=== PATIENT | female | born 1955 | race Caucasian/White ===

== ENCOUNTER 2021-11-28 17:43 | Inpatient (IN) | payer OTHER ==
[~2021-11-28] VITALS: Ht 152.4 cm; Wt 59.5 kg
[~2021-11-28 17:43] MED LIST: ALBUTEROL2.5 MG/3 M INH; ANTIVERT 25MG T25 MG PO; ASMANEX220 MC1 INH; AZITHROMYCIN250 MG PO; BORIC ACID; COMBIVENT0.074 GM/I INH; COMPAZINE10 MG PO; CYMBALTA60 MG PO; FIORICET TAB1 EA PO; FLONASE 0.05% N16 GM; IBUPROFEN600 MG PO; IBUPROFEN800 MG PO; IMITREX100 MG PO; IPRAT-ALBUT 0.5-3 ML INH; IPRATROPIUM INH; LINZESS145 MCG PO; LIORESAL TAB 1010 MG PO; LIPITOR TAB 2020 MG PO; LYRICA150 MG PO; LYRICA75 MG PO; MAGNESIUM OXID400 MG PO; METRONIDAZOLE60 GM TP; MOBIC15 MG PO; MONTELUKAST SOD10 MG PO; NABUMETONE750 MG PO; NEXIUM40 MG PO; NORCO 10-325 T1 EACH PO; PANTOPRAZOLE SO40 MG PO; PREDNISONE10 MG PO; PREPARATION H26 GM TP; PROCTOFOAM-HC 110 GM PR; ROBITUSSIN AC480 ML PO; SINGULAIR10 MG PO; SPIRIVA18 MCG INH; SUDAFED 30 MG T30 MG PO; SUMATRIPTAN SU100 MG PO; SUPRAX400 MG PO; SYMBICORT 160-1 INHA INH; SYMBICORT 16010.2 GM INH; TESSALON PERLE100 MG PO; TIZANIDINE HCL4 MG PO; VALIUM5 MG PO; VENTOLIN HFA 66.7 GM INH; VIBRAMYCIN100 MG PO; VIT D PO; VITAMIN D250000 UNIT PO; VOLTAREN100 GM TP; ZIPSOR25 MG PO; ZITHROMAX TRI-500 MG PO; ZOFRAN4 MG PO; ZYRTEC10 MG PO; [UNRECOGNIZED DRUG - OTHER] INJ; [UNRECOGNIZED DRUG - OTHER] INJ; [UNRECOGNIZED DRUG - OTHER] PO
[2021-11-28 18:51] LABS: HEMOGLOBIN 12.1 gm/dl (12.3-15.3); RED BLOOD COUNT 4.27 M/UL (4.00-5.10); WHITE BLOOD COUNT 18.3 K/UL (4.5-11.0)
[2021-11-29] MEDS ORDERED: AZELASTINE137 MCG/0. (01:41)
[2021-11-29] MEDS ORDERED: DEXILANT60 MG PO (01:42)
[2021-11-29] MEDS ORDERED: XANAX0.5 MG PO (01:43)
[2021-11-29] MEDS ORDERED: PROTONIX40 MG PO (01:44)
[2021-11-29] MEDS ORDERED: LEVOCETIRIZINE D5 MG PO (01:45)
[2021-11-29] MEDS ORDERED: FLONASE 0.05% N16 GM (01:45)
[2021-11-29] MEDS ORDERED: LINZESS72 MCG PO (01:46)
[2021-11-29] MEDS ORDERED: BACLOFEN10 MG PO (01:47)
[2021-11-29] MEDS ORDERED: SPIRIVA RESPIMAT4 GM INH (01:48)
[2021-11-29] MEDS ORDERED: ATORVASTATIN CA40 MG PO (01:50)
[2021-11-29] MEDS ORDERED: VITAMIN C1000 MG PO (01:51)
[2021-11-29] MEDS ORDERED: CYCLOBENZAPRINE10 MG PO (01:51)
[2021-11-29] MEDS ORDERED: CALCIUM500 MG PO (01:52)
[2021-11-30 06:11] LABS: HEMOGLOBIN 10.9 gm/dl (12.3-15.3)
[2021-11-30 06:18] LABS: RED BLOOD COUNT 3.84 M/UL (4.00-5.10)
[2021-11-30 07:03] LABS: BUN/CREATININE RATIO 20 (0-10)
[2021-12-02 03:25] LABS: HEMOGLOBIN 10.8 gm/dl (12.3-15.3); RED BLOOD COUNT 3.91 M/UL (4.00-5.10); WHITE BLOOD COUNT 19.4 K/UL (4.5-11.0)
[2021-12-02 04:10] LABS: BUN/CREATININE RATIO 21 (0-10)
[2021-12-03 03:28] LABS: HEMOGLOBIN 10.4 gm/dl (12.3-15.3); RED BLOOD COUNT 3.77 M/UL (4.00-5.10); WHITE BLOOD COUNT 15.9 K/UL (4.5-11.0)
[2021-12-03 03:53] LABS: BUN/CREATININE RATIO 18 (0-10)
[2021-12-04 03:01] LABS: HEMOGLOBIN 10.9 gm/dl (12.3-15.3); RED BLOOD COUNT 3.95 M/UL (4.00-5.10); WHITE BLOOD COUNT 13.6 K/UL (4.5-11.0)
[2021-12-04 03:17] LABS: BUN/CREATININE RATIO 22 (0-10)
[2021-12-04] MEDS ORDERED: PLAVIX 75 MG TA75 MG PO (11:01)
[2021-12-04] MEDS ORDERED: OMNICEF 300 MG300 MG PO (11:01)
[2021-12-04] MEDS ORDERED: BENZONATATE100 MG PO (11:01)
[2021-12-04] MEDS ORDERED: ELIQUIS5 MG PO (11:01)
[2021-12-04] MEDS ORDERED: LOPRESSOR 25 MG25 MG PO (11:01)
[2021-12-04] MEDS ORDERED: DECADRON6 MG PO (11:01)
--- NOTE | 2021-12-04 11:10 | NUR ---
PATIENT O2 SATS DROP TO 80% ON ROOM AIR.
--- NOTE | 2021-12-04 12:35 | NUR ---
PATIENT GIVEN DISCOUNT CARD FOR ELIQUIS. EXPLAINED IN DETAIL USE OF THE DISCOUNT CARD, PATIENT VERBALIZED UNDERSTANDING.
== END 2021-12-04 14:37 | disposition home or self-care (01) | DRG 177 ==
LOC: ER1 17:43 → PROG CARE 21:02 → CDU 21:02 → PROG CARE 11-29 00:46
PROVIDERS: Internal Medicine; Preventive Medicine Occupational Medicine; ADMIT Internal Medicine
PROC: 8E0ZXY6 Isolation (ICD-10-PCS; principal; 2021-11-28)
PROC: XW033E5 Introduction of Remdesivir Anti-infective into Peripheral Vein, Percutaneous Approach, New Technology Group 5 (ICD-10-PCS; 2021-11-28)
PROC: 3E0333Z Introduction of Anti-inflammatory into Peripheral Vein, Percutaneous Approach (ICD-10-PCS; 2021-11-28)
PROC: B24BZZZ Ultrasonography of Heart with Aorta (ICD-10-PCS; 2021-11-29)
PROC: 5A0945A Assistance with Respiratory Ventilation, 24-96 Consecutive Hours, High Flow/Velocity Cannula (ICD-10-PCS; 2021-12-01)
DX: U07.1 COVID-19 (principal); J96.01 Acute respiratory failure with hypoxia; J12.82 Pneumonia due to coronavirus disease 2019; J18.9 Pneumonia, unspecified organism; I21.4 Non-ST elevation (NSTEMI) myocardial infarction; J45.901 Unspecified asthma with (acute) exacerbation; I23.6 Thrombosis of atrium, auricular appendage, and ventricle as current complications following acute myocardial infarction; E87.2 Acidosis; R73.9 Hyperglycemia, unspecified; E78.5 Hyperlipidemia, unspecified; G89.29 Other chronic pain; M54.2 Cervicalgia; F32.A Depression, unspecified; T38.0X5A Adverse effect of glucocorticoids and synthetic analogues, initial encounter; F41.9 Anxiety disorder, unspecified; G43.909 Migraine, unspecified, not intractable, without status migrainosus; Z83.3 Family history of diabetes mellitus; Z82.49 Family history of ischemic heart disease and other diseases of the circulatory system; Z98.890 Other specified postprocedural states; Z83.438 Family history of other disorder of lipoprotein metabolism and other lipidemia; Z88.8 Allergy status to other drugs, medicaments and biological substances
CPT/HCPCS: 36415; 36600; 71045; 80048; 80053; 80076; 81001; 82550; 82553; 82803; 82962; 83605; 83690; 83874; 83880; 84484; 85025; 85027; 85379; 85652; 86140; 87086; 93005; 94640; 94664; 94760; 99285; J0248; J0696; J1100; J1650; J1885; J2270; J2405; J7030; Q9967; U0002

== ENCOUNTER → 2021-12-27 | Outpatient (CLI) | payer OTHER ==
[~2021-12-27] MED LIST changes: +ATORVASTATIN CA40 MG PO; +AZELASTINE137 MCG/0.; +BACLOFEN10 MG PO; +BENZONATATE100 MG PO; +CALCIUM500 MG PO; +CYCLOBENZAPRINE10 MG PO; +DECADRON6 MG PO; +DEXILANT60 MG PO; +ELIQUIS5 MG PO; +LEVOCETIRIZINE D5 MG PO; +LINZESS72 MCG PO; +LOPRESSOR 25 MG25 MG PO; +OMNICEF 300 MG300 MG PO; +PLAVIX 75 MG TA75 MG PO; +PROTONIX40 MG PO; +SPIRIVA RESPIMAT4 GM INH; +VITAMIN C1000 MG PO; +XANAX0.5 MG PO
[2021-12-27 07:15] LABS: HEMOGLOBIN 11.4 gm/dl (12.3-15.3); RED BLOOD COUNT 4.16 M/UL (4.00-5.10); WHITE BLOOD COUNT 4.2 K/UL (4.5-11.0)
[2021-12-27 07:39] LABS: BUN/CREATININE RATIO 27 (0-10)
== END ==
LOC: CATH 06:17
PROVIDERS: Internal Medicine Cardiovascular Disease
DX: I25.119 Atherosclerotic heart disease of native coronary artery with unspecified angina pectoris (principal); I77.1 Stricture of artery; I34.8 Other nonrheumatic mitral valve disorders; J45.909 Unspecified asthma, uncomplicated; E78.00 Pure hypercholesterolemia, unspecified; M19.90 Unspecified osteoarthritis, unspecified site; Z79.01 Long term (current) use of anticoagulants; Z88.6 Allergy status to analgesic agent; Z88.1 Allergy status to other antibiotic agents; Z79.02 Long term (current) use of antithrombotics/antiplatelets; Z86.16 Personal history of COVID-19; Z20.822 Contact with and (suspected) exposure to COVID-19
CPT/HCPCS: 71045; 80048; 85025; 85610; 93005; 99152; C1769; C1887; C1894; J1644; J2250; J3010; J7040; Q9967

== ENCOUNTER 2022-01-31 11:15 | Emergency (ER) | payer OTHER ==
[2022-01-31 13:06] LABS: BUN/CREATININE RATIO 24 (0-10)
== END 2022-01-31 13:20 | disposition left against medical advice (07) ==
LOC: ER1 11:15
PROVIDERS: Nurse Practitioner
DX: R07.89 Other chest pain (principal); I10 Essential (primary) hypertension; I25.2 Old myocardial infarction; J45.909 Unspecified asthma, uncomplicated; K21.9 Gastro-esophageal reflux disease without esophagitis; Z95.9 Presence of cardiac and vascular implant and graft, unspecified; Z86.16 Personal history of COVID-19; Z88.1 Allergy status to other antibiotic agents; Z88.6 Allergy status to analgesic agent
CPT/HCPCS: 71045; 80053; 82550; 82553; 84484; 85379; 93005; 99283

== ENCOUNTER → 2022-06-18 | Outpatient (CLI) | payer OTHER ==
[~2022-06-18] MED LIST changes: +AIMOVIG AU70 MG/1 ML INJ; +BOTOX INJECTION INJ; +DICLOFENAC GEL 1% TOP; +DUPIXENT300 MG/2 M INJ; +ELDERBERRY PO; +EVISTA60 MG PO; +FLUTICASONE SPRAY; +HYDROCODON-ACE1 EAC6 PO; +HYDROCORTISONE30 G2 PR; +KENALOG CREAM 080 GM TOP; +MELOXICAM15 MG PO; +METROGEL60 GM TOP; +NITROGLYCERIN0.4 MG SL; +NORVASC5 MG PO; +NURTEC ODT75 MG PO; +OXYBUTYNIN CHLOR5 MG PO; +PLAVIX75 MG PO; +PROAIR HFA8.5 GM INH; +VITAMIN D21250 MCG PO
[2022-06-18 13:50] LABS: HEMOGLOBIN 13.2 gm/dl (12.3-15.3); RED BLOOD COUNT 4.63 M/UL (4.00-5.10); WHITE BLOOD COUNT 7.5 K/UL (4.5-11.0)
== END ==
LOC: OPSV2 12:19
PROVIDERS: Obstetrics & Gynecology
DX: Z01.818 Encounter for other preprocedural examination (principal); N39.3 Stress incontinence (female) (male)
CPT/HCPCS: 36415; 71046; 81001; 85025; 93005